=== PATIENT | male | born 1990 | race Caucasian/White ===

== ENCOUNTER 2019-05-10 12:16 | Emergency (ER) | payer OTHER ==
[2019-05-10 12:33] VITALS: BP 138/84; RESP 18
[2019-05-10] MEDS ORDERED: IPRATROPIUM-ALBUTEROL 3 ML NEB INHALATION STA (12:50)
[2019-05-10] MEDS ORDERED: ACETAMINOPHEN TAB 500 MG TAB PO STA (12:50)
[2019-05-10] MEDS ORDERED: IBUPROFEN 600 MG TAB PO STA (12:50)
--- NOTE | 2019-05-10 12:52 | ED ---
General Adult HPI - General Chief complaint: Upper Respiratory Infection Stated complaint: poss flu Time Seen by Provider: 05/10/19 12:43 Source: patient, RN notes reviewed Mode of arrival: ambulatory Limitations: no limitations - History of Present Illness Initial comments: Patient is a pleasant 29-year-old male presenting to the emergency department w ith cough and congestion. Onset of symptoms was around 3 days ago. Fever started last night and continued this morning. Patient did go to the doctor who was concerned about fluid had patient come to the emergency department because they do not have testing. Patient is also having some wheezing. Patient has known history of asthma. Patient feels very cold and chilled. Patient also had myalgias. - Related Data Previous Rx's Medication Instructions Recorded Oseltamivir [Tamiflu] 75 mg PO Q12HR #10 cap 05/10/19 Allergies Allergy/AdvReac Type Severity Reaction Status Date / Time shaving cream Allergy Rash/Hives Uncoded 05/10/19 12:34 Review of Systems ROS Statement: Those systems with pertinent positive or pertinent negative responses have been documented in the HPI. ROS Other: All systems not noted in ROS Statement are negative. Constitutional: Reports: fever, chills Eyes: Denies: eye pain ENT: Denies: ear pain Respiratory: Reports: cough, dyspnea Cardiovascular: Denies: chest pain Endocrine: Reports: fatigue Gastrointestinal: Reports: abdominal pain Genitourinary: Denies: dysuria Musculoskeletal: Denies: back pain Skin: Denies: rash Neurological: Denies: weakness Past Medical History Past Medical History: Asthma History of Any Multi-Drug Resistant Organisms: None Reported Past Surgical History: Tonsillectomy Past Psychological History: No Psychological Hx Reported Smoking Status: Never smoker Past Alcohol Use History: Occasional Past Drug Use History: None Reported General Exam Limitations: no limitations General appearance: alert, in no apparent distress Head exam: Present: normocephalic Eye exam: Present: normal appearance, PERRL ENT exam: Present: normal oropharynx Neck exam: Present: normal inspection. Absent: meningismus Respiratory exam: Present: wheezes Cardiovascular Exam: Present: regular rate, normal rhythm GI/Abdominal exam: Present: soft. Absent: distended, tenderness Extremities exam: Present: normal inspection. Absent: pedal edema, calf tenderness Neurological exam: Present: alert Psychiatric exam: Present: normal affect, normal mood Skin exam: Present: normal color Course Vital Signs 05/10/19 05/10/19 05/10/19 12:28 13:21 13:52 Temperature 102.1 F H Pulse Rate 77 77 Respiratory 18 18 Rate Blood Pressure 138/84 O2 Sat by Pulse 98 Oximetry 05/10/19 05/10/19 14:02 14:27 Temperature 101.7 F H Pulse Rate 80 Respiratory Rate Blood Pressure O2 Sat by Pulse Oximetry Medical Decision Making - Medical Decision Making Patient reevaluated and feeling much better. Lung sounds are clear to auscultation. Case was discussed with Dr. Cowart. Patient is comfortable with discharge home. - Lab Data Lab Results 05/10/19 Range/Units 12:34 Influenza Type A RNA Detected H (Not Detectd) Influenza Type B (PCR) Not Detected (Not Detectd) - Radiology Data Radiology results: image reviewed (Chest x-ray shows no acute process) Disposition Clinical Impression: Influenza, Asthma Disposition: HOME SELF-CARE Condition: Stable Instructions (If sedation given, give patient instructions): Influenza (ED), Asthma (ED) Additional Instructions: Please follow-up with primary care physician in the next day or 2 for recheck. Return for difficulty breathing, uncontrolled fever, worsening symptoms or other concerns. Continue [id number] Tylenol and Motrin as needed. Prescriptions: Oseltamivir [Tamiflu] 75 mg PO Q12HR #10 cap Is patient prescribed a controlled substance at d/c from ED?: No Referrals: Jay Gaspar Jr, DO [Primary Care Provider] - 1-2 days Time of Disposition: 15:03
[2019-05-10 14:02] VITALS: PULSE 80
--- NOTE | 2019-05-10 14:17 | XR ---
EXAMINATION TYPE: XR chest 2V DATE OF EXAM: 05/10/2019 COMPARISON: NONE HISTORY: Cough TECHNIQUE: Frontal and lateral views of the chest are obtained. FINDINGS: There is no focal air space opacity, pleural effusion, or pneumothorax seen. The cardiac silhouette size is within normal limits. The osseous structures are intact. IMPRESSION: No acute cardiopulmonary process.
[2019-05-10 14:27] VITALS: TEMP 101.7
== END 2019-05-10 15:08 | disposition home or self-care (01) ==
LOC: EC 12:16
DX: J11.1 Influenza due to unidentified influenza virus with other respiratory manifestations (principal); J45.909 Unspecified asthma, uncomplicated; Z91.048 Other nonmedicinal substance allergy status
CPT/HCPCS: 71046; 87502; 94640; 99284